=== PATIENT | female | born 1980 | race Caucasian/White ===

== ENCOUNTER 2024-07-08 19:38 | Emergency (ER) | payer BC ==
[~2024-07-08] VITALS: Ht 160 cm; Wt 87.0 kg
[2024-07-08 19:49] VITALS: O2SAT 100
[2024-07-08 19:52] VITALS: TEMP 36.9
[2024-07-08 22:13] LABS: BASOPHILS % 0.8 % (0.0-2.0); EOSINOPHILS % 2.2 % (0.0-5.0); HEMATOCRIT. 36.2 % (36.0-48.0); HEMOGLOBIN. 11.9 g/dL (12.0-16.0); LYMPHOCYTES % 32.6 % (20.0-50.0); MEAN CORPUSCULAR HEMOGLOBIN 27.4 pg (28.0-32.0); MEAN CORPUSCULAR HGB CONC 32.8 g/dL (31.0-37.0); MEAN CORPUSCULAR VOLUME 83.7 fL (81.0-99.0); MEAN PLATELET VOLUME 8.3 fl (7.4-10.4); MONOCYTES % 7.5 % (2.0-8.0); NEUTROPHILS % 56.9 % (40.0-76.0); PLATELET 298 x1000/uL (130-400); RED BLOOD CELL COUNT 4.33 mill/uL (4.2-5.4); WHITE BLOOD COUNT 9.1 x1000/uL (4.5-11.0)
[2024-07-08 22:15] LABS: CHLORIDE 107 mEq/L (98-107); POTASSIUM 3.7 mEq/L (3.5-5.1); SODIUM 140 mEq/L (136-145)
[2024-07-08 22:16] LABS: CALCIUM 9.8 mg/dL (8.7-10.4); CARBON DIOXIDE 25 mEq/L (21-32)
[2024-07-08 22:21] LABS: CREATININE 0.8 mg/dL (0.6-1.0); GLUCOSE 101 mg/dL (70-105); UREA NITROGEN BLOOD 14 mg/dL (9-23)
[2024-07-08] MEDS ORDERED: IBUP-2028 MT (23:21)
[2024-07-08] MEDS ORDERED: DOCU100T MT (23:21)
[2024-07-08 23:44] VITALS: BP 120/83; PULSE 95; RESP 12; O2SAT 100
== END 2024-07-08 23:54 | disposition home or self-care (01) ==
LOC: ER 19:38
DX: K64.9 Unspecified hemorrhoids (principal); I10 Essential (primary) hypertension
CPT/HCPCS: 36415; 80048; 85025; 99283